=== PATIENT | male | born 1945 | race Caucasian/White ===

== ENCOUNTER 2016-05-19 03:24 | Emergency (ER) | payer MEDICARE, BC ==
[2016-05-19] MEDS ORDERED: DILAUDID 1 MG/ML AMP ONE (03:58)
== END 2016-05-19 05:32 | disposition home or self-care (01) ==
LOC: ER 03:24
DX: M25.512 Pain in left shoulder (principal); Z98.890 Other specified postprocedural states
CPT/HCPCS: 96372